=== PATIENT | female | born 1995 | race African-American/Black ===

== ENCOUNTER 2021-12-23 10:03 | Emergency (ER) | payer MEDICAID ==
[~2021-12-23] VITALS: Ht 160 cm; Wt 68.0 kg
[2021-12-23 12:23] LABS: BASOPHILS % 0.2 % (0.0-2.0); EOSINOPHILS % 0.4 % (0.0-5.0); HEMATOCRIT. 37.8 % (36.0-48.0); HEMOGLOBIN. 12.7 g/dL (12.0-16.0); LYMPHOCYTES % 23.4 % (20.0-50.0); MEAN CORPUSCULAR HEMOGLOBIN 24.5 pg (28.0-32.0); MEAN CORPUSCULAR VOLUME 72.8 fL (81.0-99.0); MEAN PLATELET VOLUME 9.8 fl (7.4-10.4); MONOCYTES % 5.1 % (2.0-8.0); NEUTROPHILS % 70.9 % (40.0-76.0); PLATELET 173 x1000/uL (130-400); RED BLOOD CELL COUNT 5.19 mill/uL (4.2-5.4); RED CELL DISTRIBUTION WIDTH 13.5 % (11.6-14.6)
[2021-12-23 12:28] LABS: CHLORIDE 107 mEq/L (98-107)
[2021-12-23 12:41] LABS: B-HCG QUANTITATIVE < 1 mIU/mL (<3)
[2021-12-23 12:43] LABS: CLARITY URINE CLEAR (CLEAR); COLOR URINE YELLOW (YELLOW); KETONES URINE NEGATIVE (NEGATIVE); LEUKOCYTE ESTERASE URINE TRACE (NEGATIVE); NITRITE URINE NEGATIVE (NEGATIVE); OCCULT BLOOD URINE NEGATIVE (NEGATIVE); PH URINE 7.5 (4.5-8.0); PROTEIN URINE NEGATIVE (NEGATIVE); UROBILINOGEN URINE 0.2 E.U./dL (0.2-1.0)
[2021-12-23 14:45] VITALS: BP 132/70
== END 2021-12-23 15:41 | disposition home or self-care (01) ==
LOC: ER 10:03
DX: R10.31 Right lower quadrant pain (principal); R55 Syncope and collapse
CPT/HCPCS: 36415; 71045; 76830; 76856; 80053; 81003; 81025; 82962; 83880; 84484; 84702; 85025; 86850; 86900; 86901; 93005; 99285; A4217; Z7610